=== PATIENT | male | born 1970 | race American Indian/Alaskan Native ===

== ENCOUNTER 2018-12-15 01:29 | Emergency (ER) | payer SELFPAY ==
[2018-12-15 02:13] LABS: Bilirubin,Urine NEG (Negative); Blood,Urine LG (Negative); Color,Urine Yellow (Yellow); Mucus,Urine 1+ /HPF; Urobilinogen,Urine < 2.0 mg/dL (<2.0)
[2018-12-15 02:14] LABS: RBC,Urine > 182.0 /HPF (0.0-6.0)
[2018-12-15] MEDS ORDERED: TORADOL IM ONE (03:44)
[2018-12-15] MEDS ORDERED: ZOFRAN ODT PO ONE (03:44)
[2018-12-15] MEDS ORDERED: ZOFRAN IV ONE (03:45)
[2018-12-15] MEDS ORDERED: TORADOL IV ONE (03:45)
[2018-12-15 04:10] LABS: Basophils % (Auto) 0.3 % (0.0-1.8); Eosinophils # (Auto) 0.2 K/mm3 (0.0-0.4); Hematocrit 40.9 % (35.5-45.6); Hemoglobin 13.5 gm/dl (11.8-15.2); Lymphocytes # (Auto) 4.1 K/mm3 (1.2-5.4); Lymphocytes % (Auto) 43.6 % (13.4-35.0); Mean Corpuscular HGB Conc 33 % (32-34); Mean Corpuscular Volume 88 fl (84-94); Monocytes # (Auto) 0.6 K/mm3 (0.0-0.8); Platelet Count 193 K/mm3 (140-440); Red Blood Count 4.64 M/mm3 (3.65-5.03); Red Cell Distribution Width 14.6 % (13.2-15.2)
[2018-12-15] MEDS ORDERED: FLOMAX PO ONE (04:15)
--- NOTE | 2018-12-15 04:24 | Cat Scan Report ---
CT ABDOMEN AND PELVIS WITHOUT CONTRAST HISTORY: MAIN: left flank pain: microscopic hematuria.. COMPARISON: None. TECHNIQUE: CT images of the abdomen and pelvis were obtained without administration of intravenous co ntrast. All CT scans at this location are performed using CT dose reduction for ALARA by means of au tomated exposure control. FINDINGS: Lungs/bones: Lung bases are clear. 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 Abdomen/pelvis: There is a 5 mm stone at the left-sided ureterovesicular junction on image #172 of s eries 2 with mild left-sided hydronephrosis. A phlebolith is seen adjacent to this stone. The kidneys otherwise appear unremarkable. There is hepatic steatosis. The gallbladder is contracted and otherwise normal. The spleen, pancreas, adrenals, and proximal GI tract appear unremarkable. Urinary bladder is mostly collapsed. The prostate is normal. There is no pelvic free fluid and no acu te colonic abnormality. The terminal ileum is normal. The appendix is surgically absent. IMPRESSION: 1. 5 mm left UVJ stone with mild hydronephrosis. Signer Name: Eduard Salazar MD Signed: 12/15/2018 4:20 AM Workstation Name: [id number]
[2018-12-15 04:27] LABS: Alanine Aminotransferase 18 units/L (7-56); Albumin 4.3 g/dL (3.9-5); BUN/Creatinine Ratio 16; Blood Urea Nitrogen 13 mg/dL (9-20); Calcium 10.1 mg/dL (8.4-10.2); Hemolysis Index 6
--- NOTE | 2018-12-15 05:00 | Emergency Department Report ---
ED Male HPI - General Chief complaint: Urogenital-Male Stated complaint: LEFT SIDE PAIN Time Seen by Provider: 12/15/18 03:15 Source: patient Mode of arrival: Ambulatory Limitations: No Limitations - History of Present Illness Initial comments: Patient is a 48-year-old male with a history of hypertension and [id number] diabetes and a remote history of kidney stones presents to the ED with acute onset severe left flank pain that radiates to the left lower quadrant area intermittently for the last 8 hours. Patient states that he has had persistent urinary urgency and frequency since the onset of these symptoms. Patient denies fever, chills, nausea, vomiting, chest pain, shortness of breath, testicular pain, hematuria, dysuria, dizziness, low back pain, numbness and tingling of lower extremities bilaterally or cough. MD Complaint: other (left flank pain, urinary urgency and frequency) -: Sudden, hour(s) (12) Location: penis, left flank, abdomen (suprapubic) Radiation: none Severity: severe Severity scale (0 -10): 7 Quality: aching, sharp, stabbing Consistency: intermittent Improves with: none Worsens with: urination, movement denies other symptoms. denies: discharge, swelling, mass, rash, urinary retention, blood in urine, dysuria, fever, nausea/vomiting, incontinence - Related Data Sexually active: Yes Home Medications Medication Instructions Recorded Confirmed Last Taken Simvastatin 20 mg PO QHS 02/20/13 06/11/13 06/10/13 metFORMIN [Glucophage] 500 mg PO BID 02/20/13 06/11/13 06/10/13 Previous Rx's Medication Instructions Recorded Last Taken Type amLODIPine [Norvasc] 5 mg PO DAILY #30 tab 02/20/13 06/10/13 Rx HYDROcodone/APAP 5-325 [[place] 1 - 2 each PO Q6HR PRN #12 tablet 06/11/13 Unknown Rx 5/325 mg] Ciprofloxacin HCl [Ciprofloxacin 500 mg PO Q12HR #20 tab 12/15/18 Unknown Rx TAB] Ketorolac [Toradol] 10 mg PO Q8H PRN #20 tablet 12/15/18 Unknown Rx Ondansetron [Zofran Odt] 4 mg PO Q6HR PRN #15 tab.rapdis 12/15/18 Unknown Rx Tamsulosin [Flomax] 0.4 mg PO QDAY #10 cap 12/15/18 Unknown Rx traMADol [Ultram] 50 mg PO Q6HR PRN #15 tablet 12/15/18 Unknown Rx Allergies Allergy/AdvReac Type Severity Reaction Status Date / Time PRISCILLA Inhibitors Allergy Angioedema Verified 06/11/13 09:28 ED Review of Systems ROS: Stated complaint: LEFT SIDE PAIN Other details as noted in HPI Constitutional: denies: chills, fever Eyes: denies: eye pain, eye discharge, vision change ENT: denies: ear pain, throat pain Respiratory: denies: cough, shortness of breath, wheezing Cardiovascular: denies: chest pain, palpitations Endocrine: no symptoms reported Gastrointestinal: abdominal pain (left flank). denies: nausea, diarrhea Genitourinary: urgency, frequency. denies: dysuria Musculoskeletal: denies: back pain, joint swelling, arthralgia Skin: denies: rash, lesions Neurological: denies: headache, weakness, paresthesias Psychiatric: denies: anxiety, depression Hematological/Lymphatic: denies: easy bleeding, easy bruising ED Past Medical Hx - Past Medical History Previous Medical History?: Yes Hx Hypertension: Yes Hx Diabetes: Yes Additional medical history: high cholesterol - Surgical History Past Surgical History?: Yes Hx Appendectomy: Yes - Social History Smoking Status: Never Smoker Substance Use Type: None - Medications Home Medications: Home Medications Medication Instructions Recorded Confirmed Last Taken Type Simvastatin 20 mg PO QHS 02/20/13 06/11/13 06/10/13 History amLODIPine [Norvasc] 5 mg PO DAILY #30 tab 02/20/13 06/11/13 06/10/13 Rx metFORMIN [Glucophage] 500 mg PO BID 02/20/13 06/11/13 06/10/13 History HYDROcodone/APAP 5-325 [[place] 1 - 2 each PO Q6HR PRN #12 tablet 06/11/13 Unknown Rx 5/325 mg] Ciprofloxacin HCl [Ciprofloxacin 500 mg PO Q12HR #20 tab 12/15/18 Unknown Rx TAB] Ketorolac [Toradol] 10 mg PO Q8H PRN #20 tablet 12/15/18 Unknown Rx Ondansetron [Zofran Odt] 4 mg PO Q6HR PRN #15 tab.rapdis 12/15/18 Unknown Rx Tamsulosin [Flomax] 0.4 mg PO QDAY #10 cap 12/15/18 Unknown Rx traMADol [Ultram] 50 mg PO Q6HR PRN #15 tablet 12/15/18 Unknown Rx ED Physical Exam - General Limitations: No Limitations General appearance: alert, in no apparent distress - Head Head exam: Present: atraumatic, normocephalic, normal inspection - Eye Eye exam: Present: normal appearance, PERRL, EOMI Pupils: Present: normal accommodation - ENT ENT exam: Present: normal exam, normal orophraynx, mucous membranes moist, TM's normal bilaterally, normal external ear exam - Neck Neck exam: Present: normal inspection, full ROM. Absent: tenderness - Respiratory Respiratory exam: Present: normal lung sounds bilaterally. Absent: respiratory distress, wheezes, rales, rhonchi, chest wall tenderness, accessory muscle use - Cardiovascular Cardiovascular Exam: Present: regular rate, normal rhythm, normal heart sounds. Absent: systolic murmur, diastolic murmur, rubs, gallop - GI/Abdominal GI/Abdominal exam: Present: soft, tenderness (left flank tenderness, no guarding or rebound), normal bowel sounds. Absent: guarding, hyperactive bowel sounds, organomegaly, pulsatile mass - Rectal Rectal exam: Present: deferred - Extremities Exam Extremities exam: Present: normal inspection, full ROM, normal capillary refill - Back Exam Back exam: Present: normal inspection, full ROM. Absent: tenderness, CVA tenderness (R), CVA tenderness (L), muscle spasm, paraspinal tenderness, v ertebral tenderness - Neurological Exam Neurological exam: Present: alert, oriented X3, CN II-XII intact, normal gait, reflexes normal - Psychiatric Psychiatric exam: Present: normal affect, normal mood - Skin Skin exam: Present: warm, dry, intact, normal color. Absent: rash ED Course - Reevaluation(s) Reevaluation #1: 12/15/18 05:04 This is a 48-year-old -[place] male who presented to the ED with acute onset severe left flank pain that radiates to the left lower quadrant area with urinary urgency and frequency. In the ED, patient is alert and oriented times that he is not in distress with pain. The patient today for pain in the ED and labs were drawn. Abdomen pelvis CT scan without contrast was also ordered. Lab test results were reviewed and showed significant hematuria in the urine with m ild urinary tract infection. There was also hypoglycemia of 201 mg/dL. The rest of the lab test results were not actionable. Abdomen pelvis CT scan without contrast shows lung bases that are clear. 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 The Abdomen/pelvis area shows a 5 mm stone at the left-sided ureterovesicular junction with mild left- sided hydronephrosis. A phlebolith is seen adjacent to this stone. The kidneys otherwise appear unremarkable. There is hepatic steatosis. The gallbladder is contracted and otherwise normal. The spleen, pancreas, adrenals, and proximal GI tract appear unremarkable. Urinary bladder is mostly collapsed. The prostate is normal. There is no pelvic free fluid and no acute colonic abnormality. The terminal ileum is normal. The appendix is surgically absent. On reevaluation, patient's pain is well controlled with medications. Patient was discharged home on medications for pain and antibiotics and given a referral to the urologist sales and leasing consultant Dr. Regan for follow- up. Patient was advised to contact Dr. Regan's office to schedule an appointment for follow up in 3-5 days. Patient was advised to return to the ED immediately if symptoms get worse. ED Medical Decision Making - Lab Data Result diagrams: 12/15/18 03:59 12/15/18 03:59 - Radiology Data Radiology results: report reviewed, [place] [address] Cat Scan Report Signed Patient: ASHOK PERALES MR#: [id number] : 1970 Acct:[id number] Age/Sex: 48 / M ADM Date: 12/15/18 Loc: ED Attending Dr: Ordering Physician: CARLIE QUINTANA Date of Service: 12/15/18 Procedure(s): CT abdomen pelvis wo con Accession Number(s): [id number] cc: CARLIE QUINTANA CT ABDOMEN AND PELVIS WITHOUT CONTRAST HISTORY: MAIN: left flank pain: microscopic hematuria.. COMPARISON: None. TECHNIQUE: CT images of the abdomen and pelvis were obtained without administration of intravenous contrast. All CT scans at this location are performed using CT dose reduction for ALARA by means of automated exposure control. FINDINGS: Lungs/bones: Lung bases are clear. 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 Abdomen/pelvis: There is a 5 mm stone at the left-sided ureterovesicular junction on image #172 of series 2 with mild left-sided hydronephrosis. A phlebolith is seen adjacent to this stone. The kidneys otherwise appear unremarkable. There is hepatic steatosis. The gallbladder is contracted and otherwise normal. The spleen, pancreas, adrenals, and proximal GI tract appear unremarkable. Urinary bladder is mostly collapsed. The prostate is normal. There is no pelvic free fluid and no acute colonic abnormality. The terminal ileum is normal. The appendix is surgically absent. IMPRESSION: 1. 5 mm left UVJ stone with mild hydronephrosis. Signer Name: Eduard Salazar MD Signed: 12/15/2018 4:20 AM Workstation Name: [id number] Transcribed By: ERROL Dictated By: Eduard Salazar MD Electronically Authenticated By: Eduard Salazar MD Signed Date/Time: 12/15/18 0420 - Medical Decision Making This is a 48-year-old -[place] male who presented to the ED with acute onset severe left flank pain that radiates to the left lower quadrant area with urinary urgency and frequency. In the ED, patient is alert and oriented times that he is not in distress with pain. The patient today for pain in the ED and labs were drawn. Abdomen pelvis CT scan without contrast was also ordered. Lab test results were reviewed and showed significant hematuria in the urine with mild urinary tract infection. There was also hypoglycemia of 201 mg/dL. The rest of the lab test results were not actionable. Abdomen pelvis CT scan without contrast shows lung bases that are clear. 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 The Abdomen/pelvis area shows a 5 mm stone at the left-sided ureterovesicular junction with mild left- sided hydronephrosis. A phlebolith is seen adjacent to this stone. The kidneys otherwise appear unremarkable. There is hepatic steatosis. The gallbladder is contracted and otherwise normal. The spleen, pancreas, adrenals, and proximal GI tract appear unremarkable. Urinary bladder is mostly collapsed. The prostate is normal. There is no pelvic free fluid and no acute colonic abnormality. The terminal ileum is normal. The appendix is surgically absent. On reevaluation, patient's pain is well controlled with medications. Patient was discharged home on medications for pain and antibiotics and given a referral to the urologist sales and leasing consultant Dr. Regan for follow- up. Patient was advised to contact Dr. Regan's office to schedule an appointment for follow up in 3-5 days. Patient was advised to return to the ED immediately if symptoms get worse. - Differential Diagnosis Left flank pain; kidney stones; Acute UTI; Hematuria Critical care attestation.: If time is entered above; I have spent that time in minutes in the direct care of this critically ill patient, excluding procedure time. ED Disposition Clinical Impression: Acute abdominal pain in left flank, Calculus of left kidney, Acute urinary tract infection Disposition: TO HOME OR SELFCARE Is pt being admited?: No Does the pt Need Aspirin: No Condition: Stable Instructions: Kidney Stones (ED), Flank Pain (ED), Urinary Tract Infection in Men (ED) Additional Instructions: Take medications for pain, drink plenty of fluids and follow-up with the urologist sales and leasing consultant Dr. Regan in the next 3-5 days for further evaluation. Return to the ED immediately if symptoms get worse. Prescriptions: Ciprofloxacin HCl [Ciprofloxacin TAB] 500 mg PO Q12HR #20 tab Tamsulosin [Flomax] 0.4 mg PO QDAY #10 cap Ketorolac [Toradol] 10 mg PO Q8H PRN #20 tablet PRN Reason: Pain traMADol [Ultram] 50 mg PO Q6HR PRN #15 tablet PRN Reason: Pain Ondansetron [Zofran Odt] 4 mg PO Q6HR PRN #15 tab.rapdis PRN Reason: Nausea Referrals: ROBERT REGAN MD [Staff Physician] - 3-5 Days Time of Disposition: 04:58 Print Language: CZECH
[2018-12-15 05:11] VITALS: BP 122/74
== END 2018-12-15 05:16 | disposition home or self-care (01) ==
LOC: ED 01:29
DX: N39.0 Urinary tract infection, site not specified (principal); N20.0 Calculus of kidney; I10 Essential (primary) hypertension; E11.9 Type 2 diabetes mellitus without complications; E78.00 Pure hypercholesterolemia, unspecified; Z98.890 Other specified postprocedural states; Z90.49 Acquired absence of other specified parts of digestive tract; Z79.899 Other long term (current) drug therapy; Z88.8 Allergy status to other drugs, medicaments and biological substances
CPT/HCPCS: 36415; 74176; 80053; 81001; 83690; 85025; 96374; 96375; 99284; J1885; J2405